=== PATIENT | female | born 1980 | race Caucasian/White ===

== ENCOUNTER 2020-09-29 12:39 | Emergency (ER) | payer OTHER, SELFPAY ==
--- NOTE | ~2020-09-29 | XR_ITS ---
EXAMINATION: XR chest 2V EXAM DATE: 09/29/2020 13:10 INDICATION: post COVID cough x 10 days. TECHNIQUE: Frontal and lateral projections of the chest obtained and reviewed. There is no prior amie dy for comparison. FINDINGS: The lungs are clear. There are no pleural effusions. The cardiomediastinal silhouette is within normal limits. There is no pneumothorax suspected. The bones and soft tissues are unremarkab le. IMPRESSION: No acute cardiopulmonary findings. Reviewed, dictated and finalized at location [facility]. E MOVER HELPER
--- NOTE | 2020-09-29 12:43 | ED.URI ---
HPI - URI/Sore Throat General Chief Complaint: Upper Respiratory Infection Stated Complaint: possible sinus infection Time Seen by Provider: 09/29/20 12:50 Source: patient and RN notes reviewed Mode of arrival: ambulatory Limitations: no limitations History of Present Illness HPI Narrative: 39-year-old female presents with concern for cough, chest congestion. Reports she had Covid 1 month ago and has been quarantining for the past 3 weeks. Reports she continues to have a cough and a feeling of chest congestion. Reports she is using Mucinex that is beginning to improve her symptoms. She denies any new fever, nasal congestion, rhinorrhea, sore throat, body aches, chills, sweats. MD elicited complaint: cough Related Data Home Medications Medication Instructions Recorded Confirmed spironolactone 100 mg PO DAILY 09/29/20 09/29/20 Allergies Allergy/AdvReac Type Severity Reaction Status Date / Time No Known Allergies Allergy Unverified 01/21/18 15:20 Review of Systems Review of Systems: Narrative: CONSTITUTIONAL: Denies malaise, chills, sweats, or fever. EYES: Denies visual changes, redness, or discharge. ENT: Denies rhinorrhea, congestion, sinus pain, otalgia and sore throat. CARDIOVASCULAR: Denies chest pain, palpitations, or edema. RESPIRATORY: Reports cough, chest congestion. Denies dyspnea. GASTROINTESTINAL: Denies abdominal pain, nausea, vomiting, diarrhea SKIN: Denies rash or itching. MUSCULOSKELETAL: Denies myalgia. NEUROLOGIC: Denies headache. All systems reviewed & are unremarkable except as noted in HPI and below PMFSH Social History Social History Gender identity (if verbalized by the patient): Female Comments At time of signature, agree with nursing past medical, surgical, social and family history. There is no relevant family history pertinent to the presenting complaint Exam Narrative: Exam Narrative: GENERAL: Well-appearing, well-nourished, and in no acute distress. HEAD: Normocephalic EYES: PERRLA, conjunctivae clear ENT: Nares clear, turbinates pink, no discharge. Mucous membranes moist. TM pearly edwards with sharp light reflex bilaterally; no tragal tenderness. Oropharynx not erythematous without lesions. Tonsils not enlarged and without exudate, no drooling, no hoarseness, no trismus, uvula midline. NECK: Supple. No lymphadenopathy CHEST: Clear to auscultation, breath sounds equal. No wheezing, rhonchi, rales, or stridor. No respiratory distress, speaks in full sentences. HEART: Regular rate and rhythm. No murmur heard. SKIN: Warm, dry, no rash. NEURO: Alert and oriented x3. PSYCH: Normal mood and affect Course Course Emergency Course: Patient is aware of diagnosis, understands and agrees to treatment plan. Anticipatory guidance given. Patient agrees to follow-up as directed and is aware of reasons to seek care at the emergency department. Portions of this record may have been created with voice recognition software Vital Signs Vital signs: Reviewed. Patient has been instructed to follow up with her primary care provider within the next week regarding her elevated blood pressure today. MDM - URI/Sore Throat Imaging Data My impression: Images reviewed, interpreted by radiologist, agree, see report. Radiologist's impression: EXAMINATION: XR chest 2V EXAM DATE: 09/29/2020 13:10 INDICATION: post COVID cough x 10 days. TECHNIQUE: Frontal and lateral projections of the chest obtained and reviewed. There is no prior study for comparison. FINDINGS: The lungs are clear. There are no pleural effusions. The cardiomediastinal silhouette is within normal limits. There is no pneumothorax suspected. The bones and soft tissues are unremarkable. IMPRESSION: No acute cardiopulmonary findings. Critical Care Time Critical Care Time Critical Care Time: No Discharge Plan Discharge Clinical Impression: Bronchitis Patient Disposition: Home, Self-Care Condition: Stable Na
[2020-09-29 12:49] VITALS: BP 141/76; PULSE 76; RESP 16; TEMP 36.9; O2SAT 98
== END 2020-09-29 13:32 | disposition home or self-care (01) ==
PROVIDERS: Emergency Provider Nurse Practitioner
DX: J40 Bronchitis, not specified as acute or chronic (principal); Z86.19 Personal history of other infectious and parasitic diseases
CPT/HCPCS: 71046; 99213; G0463

== ENCOUNTER → 2022-04-05 14:15 | Outpatient (CLI) | payer BC, SELFPAY ==
--- NOTE | ~2022-04-05 | MM_ITS ---
EXAMINATION: MM screening irene BI w jocelyn HISTORY: Screening TECHNIQUE: Craniocaudal and mediolateral oblique 3-D tomosynthesis images were obtained and synthetic 2-D images were generated. CAD analysis was submitted and interpreted. COMPARISON: No prior mammogram is available for comparison at this institution. BREAST PARENCHYMAL COMPOSITION: There are scattered areas of fibroglandular density. FINDINGS: There are focal asymmetries in the lower inner quadrant of the left breast, middle third. N o mammographic evidence for malignancy in the right breast. IMPRESSION: 1. Left breast asymmetries, lower inner quadrant. 2. Additional spot compression and mediolateral views with possible follow-up breast ultrasound recom mended. BI-RADS Category 0: Incomplete: Needs additional imaging evaluation. Reviewed, dictated and finalized at location A. IMPRESSION: 1. Left breast asymmetries, lower inner quadrant. 2. Additional spot compression and mediolateral views with possible follow-up b reast ultrasound recommended. BI-RADS Category 0: Incomplete: Needs additional imaging evaluation.
== END ==
PROVIDERS: PCP Nurse Practitioner Obstetrics & Gynecology; Visit Provider Nurse Practitioner Obstetrics & Gynecology
DX: Z12.31 Encounter for screening mammogram for malignant neoplasm of breast (principal); R92.8 Other abnormal and inconclusive findings on diagnostic imaging of breast
CPT/HCPCS: 77063; 77067

== ENCOUNTER 2024-01-10 14:20 | Observation (INO) | payer BC, SELFPAY ==
[2024-01-10] VITALS (11 sets, daily range): BP systolic 105–156; BP diastolic 73–97; PULSE 72–100; RESP 12–17; TEMP 36.6–36.8; O2SAT 97–100; BMI 43.6
--- NOTE | ~2024-01-10 | US_ITS ---
EXAMINATION: US carotid duplex BI DATE: 01/11/2024 11:54 INDICATION: Syncope TECHNIQUE: Grayscale, color Doppler, and pulsed Doppler images of the cervical carotid arteries were obtained. The degree of vessel stenosis is placed in one of the following categories: normal, <50%, 5 0-69%, >=70% but less than near-occlusion, near-occlusion, or total occlusion. Note that percent sten osis relative to normal distal artery lumen diameter is indirectly measured from velocity measurement s as described by Monty, et al. Radiology 2003; 229:340-346. COMPARISON: None. FINDINGS: RIGHT: The right common carotid artery (CCA) peak systolic velocity (PSV) is 115.5 cm/s. The right internal carotid artery (ICA) PSV is 96.1 cm/s. The right ICA end-diastolic velocity (EDV) is 43.9 cm/s. The r ight ICA/CCA PSV ratio is 0.8. Grayscale and color Doppler images yield an estimate of 0% diameter re duction from plaque in the ICA. The external carotid artery (ECA) PSV is 89.7 cm/s. There is antegrad e flow in the right vertebral artery. LEFT: The left CCA PSV is 105.3 cm/s. The left ICA PSV is 82.3 cm/s. The left ICA EDV is 31.9 cm/s. The lef t ICA/CCA PSV ratio is . Grayscale and color Doppler images yield an estimate of 0% diameter reductio n from plaque in the ICA. The ECA PSV is 82.3 cm/s. There is antegrade flow in the left vertebral art collette. IMPRESSION: 1. No significant stenosis in the right internal carotid artery. 2. No significant stenosis in the left internal carotid artery. Reviewed, dictated and finalized at [facility]. Reviewed, dictated and finalized at location A.
--- NOTE | ~2024-01-10 | CT_ITS ---
EXAMINATION: CT brain wo con DATE: 01/10/2024 17:19 INDICATION: syncope/seizure . TECHNIQUE: Computed tomography (CT) of the head was performed without intravenous contrast. The mA wa s adjusted according to patient size. Iterative reconstruction technique was employed. The dose-lengt h product was 605.33 mGy-cm. COMPARISON: None. FINDINGS: No acute intracranial hemorrhage or extra-axial fluid collection. No hydrocephalus, mass, or herniation. No acute ischemic infarct. Unremarkable dural venous sinus attenuation. No acute osseous abnormality. The aerated spaces are clear. IMPRESSION: No acute intracranial process. Reviewed, dictated and finalized at location K.
--- NOTE | ~2024-01-10 | MR_ITS ---
EXAMINATION: MR brain/brain stem wo con DATE: 01/11/2024 11:32 INDICATION: syncope and collapse TECHNIQUE: Magnetic resonance imaging (MRI) of the brain and brainstem was performed without intraven ous contrast. Sequences included sagittal and axial T1-weighted SE, coronal FSPGR 3-D, axial diffusio n-weighted, axial T2*-weighted GRE, axial and coronal T2-weighted FLAIR, and axial T2-weighted Propel ler. Apparent diffusion coefficient (ADC) maps were created. COMPARISON: CT brain 01/10/24. FINDINGS: No abnormal restricted diffusion to suggest acute ischemic infarct. No MRI evidence of hemorrhage or extra-axial collection. No suspicious foci of susceptibility to suggest prior intraparenchymal hemorr linh. Normal white matter signal. No evidence of advanced or lobar predominant parenchymal volume los s. The basilar cisterns are patent. Flow voids are preserved. Ethmoid and maxillary mucosal thickenin g. Globes and orbital contents are within normal limits. IMPRESSION: Normal MR brain findings Reviewed, dictated and finalized at location K. IMPRESSION: Normal MR brain findings
--- NOTE | ~2024-01-10 | CT_ITS ---
EXAMINATION: CTA chest PE protocol DATE: 01/11/2024 09:21 INDICATION: Syncope TECHNIQUE: Computed tomography angiography (CTA) of the chest was performed with 100 mL Omnipaque-350 intravenous contrast timed to evaluate the pulmonary arteries. Coronal maximum intensity projection 3D-reconstructions were created by the technologist. Automated exposure control and iterative reconst ruction technique were employed. Exam dose: 964.17 mGy-cm total exam DLP. COMPARISON: No prior examinations are available from PACS. FINDINGS: There is diagnostic contrast enhancement of the pulmonary arteries and no evidence of pulmo nary embolism. No thoracic aortic aneurysm or dissection. No hilar or mediastinal mass lesion or lymphadenopathy. Normal heart size. No pericardial or pleural effusion. No pulmonary infiltrate or consolidation or pulmonary mass lesion is detected. Normal morphology of the adrenal glands. Small sliding hiatal hernia. IMPRESSION: No significant abnormality Reviewed, dictated and finalized at [facility]. Reviewed, dictated and finalized at location A. IMPRESSION: No significant abnormality
--- NOTE | 2024-01-10 14:27 | ECG_ITS ---
Measurements Intervals [place] Rate: 102 P: 42 LA: 127 QRS: 7 QRSD: 102 T: 61 QT: 337 QTc: 440 Interpretive Statements SINUS TACHYCARDIA POOR R-WAVE PROGRESSION NO PREVIOUS ECG AVAILABLE FOR COMPARISON Electronically Signed On 01-11-2024 13:19:37 CDT by Zaynab Giraldo M.D.
[2024-01-10 14:44] LABS: Basophils Absolute Auto 0.1 K/mm3 (0.0-0.1); Basophils Percent Auto 0.6 % (0.2-1.2); Eosinophils Absolute Auto 0.5 K/mm3 (0-0.3); Eosinophils Percent Auto 5.3 % (0-4.4); Hemoglobin 14.7 g/dL (12.0-15.0); Immature Granulocyte Absolute 0.02 K/mm3 (0.00-0.031); Immature Granulocyte Percent A 0.2 % (0-0.5); Lymphocytes Absolute Auto 2.83 K/mm3 (0.9-3.2); Lymphocytes Percent Auto 28.8 % (18.3-44.2); Mean Corpuscular HGB Conc 33.4 g/dl (32-36); Mean Corpuscular Hemoglobin 31.4 pg (26-34); Mean Platelet Volume 9.6 fl (7.4-10.4); Monocytes Absolute Auto 0.6 K/mm3 (0.1-0.6); Monocytes Percent Auto 5.8 % (2.6-8.5); Neutrophils Absolute Auto 5.8 K/mm3 (1.3-6.7); Neutrophils Percent Auto 59.3 % (45.5-73.1); Platelet Count Result 369 k/mm3 (150-375); Red Blood Count 4.68 M/mm3 (4.2-5.4); Red Cell Distribution Width 12.2 % (11.5-14.5); White Blood Count 9.8 K/mm3 (4.5-10.0)
[2024-01-10 14:56] LABS: Alanine Aminotransferase 35 U/L (6-35); Albumin Level 4.7 g/dL (3.5-5.1); Alkaline Phosphatase 48 U/L (38-126); Anion Gap 11 mmol/L (4-12); Aspartate Amino Transferase 28 U/L (14-36); Bilirubin,Total 0.7 mg/dL (0.2-1.3); Blood Urea Nitrogen 14 mg/dL (7-17); Calcium 10.5 mg/dL (8.4-10.2); Carbon Dioxide 21 mmol/L (22-30); Chloride 104 mmol/L (98-107); Estimated CRCL calculation 106 ml/min; Estimated Glomerular Filt Rate > 60; Glucose 135 mg/dL (65-110); Potassium 4.3 mmol/L (3.4-5.0); Sodium 136 mmol/L (137-145)
[2024-01-10] MEDS: SODIUM CHLORIDE 0.9% IV 2,000 ML 999 ML IV CONT (16:50)
--- NOTE | 2024-01-10 17:39 | ED.GENADULT ---
HPI - General Adult General Chief complaint: Syncope Stated complaint: syncopal Time Seen by Provider: 01/10/24 16:28 History of Present Illness HPI narrative: this is a 43-year-old female presenting ED after loss of consciousness. the patient does not remember the events leading up to her loss of consciousness. She notes that she was taking a shower and then woke up with EMS. Her said he heard a thud from the other room. We went in to check on her she was laying on the floor. He did not observe any shaking movements at that time. When she did wake up she was confused but slowly returned to normal. Patient has no complaints at this time. She did bite the left side of her tongue. Unknown if there is urinary incontinence as she was in the shower. patient has no physical complaints at this time. patient and her believes she may have had a seizure 7 years ago when she had an episode of uncontrolled arm movements that resulted in her having a postictal period. At that time the not seek any care Related Data Home Medications Medication Instructions Recorded Confirmed spironolactone 100 mg tablet 100 mg PO DAILY 09/29/20 09/29/20 Allergies Allergy/AdvReac Type Severity Reaction Status Date / Time No Known Allergies Allergy Verified 01/10/24 14:29 [facility] Social History Social History Gender identity (if verbalized by the patient): Female Exam Narrative: APPEARANCE: No apparent distress. Head: Bruising to left side of the tongue EYES: EOMI, NOSE: Atraumatic NECK: Trachea midline RESPIRATORY: No increased rate of breathing, clear to auscultation CARDIOVASCULAR: RRR, ABDOMINAL: Non-distended MUSCULOSKELETAl: No obvious deformities NEURO: Alert. Cranial nerves 2-12 grossly intact. Sensation light touch, motor function cerebellar function intact for 4 extremities. Gait exam was normal. SKIN:: Warm, dry. Normal color PSYCHIATRIC: Normal affect Course Vital Signs Vital signs: Vital Signs Temperature 98.3 F 01/10/24 14:20 Pulse Rate 100 01/10/24 14:20 Respiratory Rate 17 01/10/24 14:20 Blood Pressure 156/97 H 01/10/24 14:20 Pulse Oximetry 97 01/10/24 14:20 Oxygen Delivery Room Air 01/10/24 14:20 Temperature 98.3 F 01/10/24 14:20 Pulse Rate 72 01/10/24 19:20 Respiratory Rate 15 01/10/24 19:20 Blood Pressure 119/73 01/10/24 19:20 Pulse Oximetry 98 01/10/24 19:20 Oxygen Delivery Room Air 01/10/24 14:39 Medical Decision Making MDM Narrative Medical decision making narrative: -Course: 43-year-old female presenting with loss of consciousness. Patient has tongue biting and an apparent postictal period. workup here negative. Patient will be admitted for new onset seizure workup. case discussed with Dr. Deal and Dr. Dennis -DDX includes but is not limited to: seizure, syncope, ICH -Independent interpretation of studies: Labs reviewed within normal limits CT head unremarkable Independent EKG interpretation: Rhythm [sinus], Rate [102], [place] -[normal], ND -[normal], QRS [narrow], QTC [normal], T waves -[negative for concerning inversions], ST Segments - [Negative for concerning elevations] Final interpretations: sinus tachycardia -Discussion of Management/Consultants: Say - NeuroSonny -hospitalist -Interventions: 2 L normal saline -Shared decision making / Disposition: Admitted Vital Signs Vital Signs: Vital Signs Temperature 98.3 F 01/10/24 14:20 Pulse Rate 100 01/10/24 14:20 Respiratory Rate 17 01/10/24 14:20 Blood Pressure 156/97 H 01/10/24 14:20 Pulse Oximetry 97 01/10/24 14:20 Oxygen Delivery Room Air 01/10/24 14:20 Temperature 98.3 F 01/10/24 14:20 Pulse Rate 72 01/10/24 19:20 Respiratory Rate 15 01/10/24 19:20 Blood Pressure 119/73 01/10/24 19:20 Pulse Oximetry 98 01/10/24 19:20 Oxygen Delivery Room Air 01/10/24 14:39 Lab Data 01/10/24 14:34
[2024-01-10 17:52] LABS: NT Pro B Type Natriuretic Pept 72 pg/mL (19.9-100); Troponin I < 0.012 ng/mL (0.000-0.034)
[2024-01-10 18:45] LABS: Appearance Urine Clear (Clear); Bilirubin Urine Negative (Negative); Blood Urine Negative (Negative); Color Urine Yellow (Yellow); Glucose Urine UA Negative (Negative); Ketones Urine Negative (Negative); Leukocyte Esterase Ur Negative LEU/UL (Negative); Nitrate Urine Negative (Negative); Protein Urine Negative (Negative); Urobilinogen Urine 0.2 mg/dL (<2.0)
[2024-01-10 18:59] LABS: Add Urine Microscopic? NO
[2024-01-10 19:04] LABS: Amphetamine Screen Urine Negative (Negative); Barbiturate Screen Urine Negative (Negative); Benzodiazepines Screen Urine Negative (Negative); Cannabinoid Screen Urine Negative (Negative); Cocaine Screen Urine Negative (Negative); Methadone Screen Urine Negative (Negative); Opiate Screen Urine Negative (Negative); Phencyclidine Screen Urine Negative (Negative)
--- NOTE | 2024-01-10 20:05 | PM.IMHP ---
H&P: HPI History of Present Illness Date/Time: 01/10/24 20:05 Chief Complaint: AMS Narrative: this is a 43-year-old female with past medical history significant for morbid obesity. Patient presented to the emergency room via EMS after she was found unconscious by her , according to he heard a loud noise and went upstairs to check up on her when he found her unconscious laying on the shower floor. Patient has no recollection of event she workup while on the ambulance ride. Prior to this patient has been in her usual state of health denies any headaches, now has a headache in the occipital area, no vision changes no fevers no rigors no chills no palpitations no nausea no vomiting no diarrhea. Preliminary workup has been essentially nonrevealing. EXAMINATION: CT brain wo con DATE: 01/10/2024 17:19 INDICATION: syncope/seizure . TECHNIQUE: Computed tomography (CT) of the head was performed without intravenous contrast. The mA was adjusted according to patient size. Iterative reconstruction technique was employed. The dose-length product was 605.33 mGy-cm. COMPARISON: None. FINDINGS: No acute intracranial hemorrhage or extra-axial fluid collection. No hydrocephalus, mass, or herniation. No acute ischemic infarct. Unremarkable dural venous sinus attenuation. No acute osseous abnormality. The? aerated spaces are clear. IMPRESSION:? No acute intracranial process. Review of Systems Review of Systems: PATIENT HAS NO RECOLLECTION OF EVENTS PMFSH Social History Social History Smoking status: Current every day smoker Tobacco type: cigarettes Alcohol intake: current Drinks per week: 1 Substance use: never Do You Feel Safe in your Home?: Yes Lack of Transportation: No Lack of Food: Never True Current Housing: I Have Housing Concerned About Future Housing: No Difficulty Paying Gas/Electric Bills: No Difficulty Paying for Meds: No Currently Unemployed: No Education: Master's Degree or Higher Difficulty w/ Childcare or Family Care: No Gender identity (if verbalized by the patient): Female Spiritual care concerns: No Meds Home Medications and Allergies Home Medications Medication Instructions Recorded Confirmed Type spironolactone 100 mg tablet 100 mg PO DAILY 09/29/20 01/10/24 History Allergies Allergy/AdvReac Type Severity Reaction Status Date / Time No Known Allergies Allergy Verified 01/10/24 14:29 Vital Signs Vital Signs - 24 hr 01/10/24 14:20 01/10/24 14:38 01/10/24 14:39 Temperature 98.3 F Pulse Rate 100 95 Respiratory Rate 17 Blood Pressure 156/97 H Pulse Oximetry 97 100 Oxygen Delivery Room Air Room Air 01/10/24 15:37 01/10/24 16:49 01/10/24 18:39 Temperature Pulse Rate 73 82 80 Respiratory Rate 12 13 14 Blood Pressure 147/87 H 144/86 H 122/75 Pulse Oximetry 98 99 99 Oxygen Delivery 01/10/24 19:20 Temperature Pulse Rate 72 Respiratory Rate 15 Blood Pressure 119/73 Pulse Oximetry 98 Oxygen Delivery Exam Const: General: comfortable, no acute distress, well developed, alert, awake and obese Nutritional Appearance: obese Orientation/consciousness: patient oriented x3 Other: WELL APPEARING HENMT: Head: normal to inspection, normocephalic and atraumatic Ears: hearing grossly normal bilaterally Face/Nose/Sinus: normal facial exam Face and sinus: normal facial exam Eyes: General: appearance normal, both eyes and all related structures Pupils: Equal, round and reactive pupils present EOM: EOMs intact bilaterally Neck: Neck: full ROM, no lymphadenopathy and no JVD Thyroid: thyroid normal Lymphatic: no lymphadenopathy noted Resp: Effort & Inspection: normal respiratory effort and able to speak in complete sentences Auscultation: clear to auscultation bilaterally Cardio: Jugular venous distension: no JVD Rate: regular rate Rhythm: regular rhythm Heart sounds
--- NOTE | 2024-01-10 21:32 | ADMGEN ---
This patient, Khloe Patricio, was admitted to Medical Room 342-01. Patient/family oriented to hospital policies and general routines including ID bracelet, bed and alarms, visiting hours, pain management, procedures, bathroom and other care routines, personal items, smoking policy, room service/diet, and visiting hours. Information on how to activate the Rapid Response Team has been discussed. Patient/Family are encouraged to report perceived risks to care and to ask questions if they do not understand what they are told or what they should do.
[2024-01-11] VITALS (8 sets, daily range): BP systolic 117–141; BP diastolic 67–89; PULSE 70–82; RESP 14–16; TEMP 35.9–36.8; O2SAT 99–100
--- NOTE | 2024-01-11 | ECHO_ITS ---
Patient Info Name: Khloe Patricio Age: 43 years : 1980 Gender: Female Ht: 67 in Wt: 265 lbs BSA: 2.44 m2 HR: 75 bpm BP: 117 / 67 mmHg Heart Rhythm: Sinus Rhythm Technical Quality: Good Exam Date: 01/11/2024 7:02 AM Exam Location: Echo Lab Patient Status: Inpatient Admit Date: 01/10/2024 Staff Ordering Physician: Melodie Dennis MD Sanitation Technician: Albertina Joel RDCS Attending Provider: Melodie Dennis MD Referring Physician: Sonny SIERRA; Exam Type: CA echo doppler color flow Study Info Indications - syncope Complete two-dimensional, color flow and Doppler transthoracic echocardiogram is performed. Summary 1. Complete two-dimensional, color flow and Doppler transthoracic echocardiogram is performed. 2. Left ventricular chamber dimension is mildly enlarged. 3. Left ventricular systolic function is normal, estimated at 60-65%. 4. The left ventricular diastolic function is grade III diastolic dysfunction. 5. Right ventricular systolic function is normal. 6. No significant valvular disease. Left Ventricle Left ventricular chamber dimension is mildly enlarged. Left ventricular systolic function is normal, estimated at 60-65%. There is no increased left ventricular wall thickness. The left ventricular diastolic function is grade III diastolic dysfunction. Right Ventricle Right ventricular chamber dimension is normal. Right ventricular systolic function is normal. Left Atria Left atrial chamber dimension is normal. Right Atria Right atrial chamber dimension is normal. Atrial Septum Intact interatrial septum visualized by color flow imaging. Aortic Valve The aortic valve is trileaflet. There is no aortic valve stenosis. There is no aortic valve regurgitation. Pulmonic Valve The pulmonic valve is not well visualized. Mitral Valve There is trace mitral valve regurgitation. Tricuspid Valve There is trace tricuspid valve regurgitation. Pericardium/Pleural There is no pericardial effusion. Inferior Vena Cava Inferior vena cava is not well visualized. Aorta The aortic root size at the sinus of Valsalva is normal. Left Ventricular Outflow Tract Name Value Normal LVOT 2D LVOT Diameter 2.1 cm LVOT Doppler LVOT Peak Gradient 4 mmHg LVOT Mean Gradient 3 mmHg LVOT VTI 32 cm LVOT VTI/AV VTI Ratio 0.8 LVOT Stroke Volume 113 ml LVOT CO 7.6 l/min LVOT CI 3.1 l/min/m2 Pulmonic Valve Name Value Normal RVOT Doppler RVOT Peak Gradient 1 mmHg PV Doppler PV Peak Gradient 4 mmHg Mitral Valve Name V
[2024-01-11] MEDS: SPIRONOLACTONE 50 MG TABLET 100 MG PO (09:28)
[2024-01-11 10:32] LABS: Hematocrit 41.7 % (37.0-47.0); Hemoglobin 13.9 g/dL (12.0-15.0); Mean Corpuscular HGB Conc 33.3 g/dl (32-36); Mean Corpuscular Hemoglobin 31.7 pg (26-34); Mean Platelet Volume 9.7 fl (7.4-10.4); Platelet Count Result 337 k/mm3 (150-375); Red Blood Count 4.39 M/mm3 (4.2-5.4); Red Cell Distribution Width 12.5 % (11.5-14.5); White Blood Count 12.4 K/mm3 (4.5-10.0)
[2024-01-11 10:42] LABS: Alanine Aminotransferase 37 U/L (6-35); Albumin Level 4.6 g/dL (3.5-5.1); Alkaline Phosphatase 42 U/L (38-126); Anion Gap 10 mmol/L (4-12); Aspartate Amino Transferase 29 U/L (14-36); Bilirubin,Total 0.7 mg/dL (0.2-1.3); Blood Urea Nitrogen 14 mg/dL (7-17); Calcium 9.6 mg/dL (8.4-10.2); Carbon Dioxide 23 mmol/L (22-30); Chloride 106 mmol/L (98-107); Cholesterol 191 mg/dL (0-200); Estimated CRCL calculation 98 ml/min; Estimated Glomerular Filt Rate > 60; Glucose 151 mg/dL (65-110); HDL Direct 59 mg/dL; Potassium 3.9 mmol/L (3.4-5.0); Sodium 139 mmol/L (137-145); Triglycerides 112 mg/dL (<150)
[2024-01-11 10:53] LABS: LDL Cholesterol Direct 107 mg/dL
[2024-01-11 11:02] LABS: Hemoglobin A1C 5.3 % (<5.7)
--- NOTE | 2024-01-11 14:44 | WPDNEURCNPN ---
Assessment and Plan Assessment and plan (1) Morbid obesity with BMI of 40.0-44.9, adult: Code(s): E66.01 - Morbid (severe) obesity due to excess calories; Z68.41 - Body mass index [BMI] 40.0-44.9, adult Status: Acute (2) Syncope and collapse: Code(s): R55 - Syncope and collapse Status: Acute Plan 1. Couple episode rule out the possibility of seizures and intracranial abnormalities with the EEG as well in addition to MRI of the brain. Consult date: 01/11/24 HPI: Khloe Patricio is a 43 year old female Admitted to the hospital through the emergency room subsequent to syncopal episode for which she had no recall in the emergency room reportedly she was taking a shower and then woke up with EMS her heard a thud from the other room and she was found to be laying on the floor though he did not observe any shaking movements of the upper or lower extremities when she woke up finally she was confused and then slowly returned to the normal did bite her tongue on the left side and had no physical complaints in the emergency room, she has been taking spironolactone 100mg daily, she is not allergic to any medications, initial physical exam in the emergency room was unremarkable with vital signs revealing blood pressure 156/97 which came down to normal CBC was normal basic metabolic panel with sodium 136 routine lab studies normal and the drug screen negative, initial CT scan of the head negative for the bleed, chest CTA negative, carotid Doppler study has been done which is also normal and MRI of the brain is pending. The EKG was normal without atrial fibrillation PMFSH Social History Social History Smoking status: Current every day smoker Tobacco type: cigarettes Alcohol intake: current Drinks per week: 1 Substance use: never Do You Feel Safe in your Home?: Yes Lack of Transportation: No Lack of Food: Never True Current Housing: I Have Housing Concerned About Future Housing: No Difficulty Paying Gas/Electric Bills: No Difficulty Paying for Meds: No Currently Unemployed: No Education: Master's Degree or Higher Difficulty w/ Childcare or Family Care: No Gender identity (if verbalized by the patient): Female Spiritual care concerns: No Meds Home Medications and Allergies Home Medications Medication Instructions Recorded Confirmed Type spironolactone 100 mg tablet 100 mg PO DAILY 09/29/20 01/10/24 History Allergies Allergy/AdvReac Type Severity Reaction Status Date / Time No Known Allergies Allergy Verified 01/10/24 14:29 Vital Signs Vital Signs - 24 hr 01/10/24 15:37 01/10/24 16:49 01/10/24 18:39 Temperature Pulse Rate 73 82 80 Respiratory Rate 12 13 14 Blood Pressure 147/87 H 144/86 H 122/75 Pulse Oximetry 98 99 99 Oxygen Delivery 01/10/24 19:20 01/10/24 20:28 01/10/24 21:22 Temperature 36.6 C Pulse Rate 72 83 80 Respiratory Rate 15 17 16 Blood Pressure 119/73 105/79 137/80 Pulse Oximetry 98 98 99 Oxygen Delivery 01/10/24 22:18 01/11/24 00:00 01/10/24 23:22 Temperature Pulse Rate 80 80 Respiratory Rate 16 Blood Pressure Pulse Oximetry 99 99 Oxygen Delivery Room Air Room Air 01/11/24 04:00 01/11/24 06:00 01/11/24 07:45 Temperature 35.9 C L 36.5 C Pulse Rate 76 75 82 Respiratory Rate 14 16 Blood Pressure 117/67 131/68 Pulse Oximetry 99 100 Oxygen Delivery 01/11/24 07:48 01/11/24 07:49 01/11/24 08:00 Temperature Pulse Rate 70 72 71 Respiratory Rate Blood Pressure 141/89 H 139/86 Pulse Oximetry 100 100 Oxygen Delivery 01/11/24 09:30 01/11/24 14:00 Temperature 36.8 C Pulse Rate 77 Respiratory Rate 16 Blood Pressure 122/71 Pulse Oximetry 100 Oxygen Delivery Room Air Exam Narrative: revealed her to be awake alert cooperative in no obvious acute distress, head normocephalic with no cranial bruit, ear nose throat examination normal, neck supple with no meninge
--- NOTE | 2024-01-11 16:28 | PM.DS ---
DS: Admitting Diagnosis Discharge Date 01/11/2024 Admitting Diagnosis Syncope/seizure like activity DS: Discharge Diagnosis Discharge Diagnosis (1) Syncope and collapse: Code(s): R55 - Syncope and collapse Status: Acute (2) Loss of consciousness: Code(s): R40.20 - Unspecified coma Status: Acute Plan Assessment and plan (1) Syncope and collapse Has reported seizure-like activity/appeared postictal at home Neurology consulted Head CT no acute issues MRI with normal brain CTA chest no acute issues Carotid Dopplers with less than 10% stenosis EEG: He can be done the toe Saturday will provide order TSH normal limits ECHOSummary ? 1. Complete two-dimensional, color flow and Doppler transthoracic echocardiogram is performed. ? 2. Left ventricular chamber dimension is mildly enlarged. ? 3. Left ventricular systolic function is normal, estimated at 60-65%. ? 4. The left ventricular diastolic function is grade III diastolic dysfunction. ? 5. Right ventricular systolic function is normal. ? 6. No significant valvular disease. ?MRI of the brain in the? morning (2) Morbid obesity with BMI of 40.0-44.9, adult: ?Obesity encourage increased on physical activity and lifestyle modifications Stress monitoring and eating disorder evaluation. encourage outpatient weight loss clinic BMI . Diet exercise counseling done. consult to dietitian Disposition: Patient was discharged home with plan for EEG on Saturday and follow up with Neurology outpatient. DS: Summary Hospital Course Reason for hospitalization: Syncope/Seizure like activity Hospital Course: Patient is a 43-year-old female who presented to the emergency department after a syncopal episode at home. Patient states she does not remember anything except when she woke up in the ambulance. Per patient was in the shower when he heard a thud when he assessed his she was unconscious still breathing appear to have some seizure-like activity. Patient states she recalls 1 other episode 10 years ago of same symptoms but did not seek any medical care. Patient's labs were unremarkable except for a mildly elevated leukocytosis likely reactive. Patient was admitted to the medical unit for further evaluation and consult to Neurology. CT head showed no acute issues, MRI showed normal brain, CTA negative for PE, echocardiogram does show a mildly enlarged left ventricle EF 60-65%. Patient with no deficits and no further events while hospitalized. Neurology was wanting the EKG however unable to be performed until Saturday it was agreed upon the patient be discharged home with order to return on Saturday for EEG and follow up with Neurology in their office as outpatient for further testing. Did education with the patient about no driving until cleared by Neurology. Patient discharged home with no acute issues or deficits. Status at Discharge Functional status at discharge: independent ambulation Time Spent with Patient Time attestation: Total time spent providing and/or coordinating discharge services: Time spent: Less than 30 minutes Exam Narrative: Physical Exam: GENERAL: Alert and oriented x 3. No acute distress. Obese. EYES: EOMI. No scleral icterus. PERRLA. HEENT: Moist mucous membranes. LUNGS: Clear to auscultation bilaterally. No accessory muscle use. CARDIOVASCULAR: Regular rate and rhythm. No murmur. No JVD. S1-S2 ABDOMEN: Soft, mild tenderness and non-distended. No palpable masses. EXTREMITIES: No edema. Non-tender SKIN: No rashes or lesions. Skin warm, dry. NEUROLOGIC: No focal neurological deficits. CN II-XII grossly intact PSYCHIATRIC: Appropriate mood and affect. Good judgement and insight. No visual or auditory hallucinations. No suicidal or homicidal ideation. DS: Data Data Completed and Pending Labs on day of discharge: Labs from last 24 hours 01/11/24 01/10/24
== END 2024-01-11 16:47 | disposition home or self-care (01) ==
LOC: ANHED 17:46 → ANH3MED 01-11 13:10
PROVIDERS: Emergency Medicine; Nurse Practitioner Family; Admitting Provider Internal Medicine; Emergency Provider Emergency Medicine; PCP Nurse Practitioner Obstetrics & Gynecology; Visit Provider Internal Medicine
DX: R55 Syncope and collapse (principal); E66.01 Morbid (severe) obesity due to excess calories; Z68.41 Body mass index [BMI] 40.0-44.9, adult; F17.210 Nicotine dependence, cigarettes, uncomplicated; Z79.899 Other long term (current) drug therapy
CPT/HCPCS: 36415; 70450; 70551; 71275; 80053; 80061; 80307; 81003; 81025; 83036; 83880; 84443; 84484; 85025; 85027; 93005; 93306; 93880; 96360; 96361; 99285; A9270; G0378; J7030; Q9967

== ENCOUNTER 2024-01-16 10:39 | Outpatient (CLI) | payer BC, SELFPAY ==
--- NOTE | 2024-01-21 14:51 | WPDNEUROLOGY ---
Neurology EEG Report General Information Date of Study: 01/16/24 TEST eeg DIAGNOSIS New onset seizures CONDITION OF RECORDING awake drowsy and sleep EEG NUMBER [id number] CLINICAL HISTORY patient reports about a week ago she lost consciousness. Fell and bit her tongue. No history of seizures in the past. EEG DESCRIPTION Basic resting occipital frequency consists of low-voltage 8 to 11 hertz per 2nd alpha admixed with low-voltage 15 to 18 hertz per 2nd beta with good carly posterior gradient. Hyperventilation produced normal and symmetrical buildup. Bilateral symmetrical sleep activity is noted with mixture of alpha theta and beta activity evolving into normal bilateral symmetrical sleep spindles. Non paroxysmal. Nonfocal. Nonlateralizing. IMPRESSION Normal record. Clinical correlation recommended. She can be normal in a patient with the history of seizures.
== END 2024-01-16 10:40 | disposition home or self-care (01) ==
PROVIDERS: PCP Nurse Practitioner Obstetrics & Gynecology; Visit Provider Nurse Practitioner Family
DX: R40.20 Unspecified coma (principal)
CPT/HCPCS: 95816

== ENCOUNTER 2024-02-12 08:46 | Outpatient (CLI) | payer BC, SELFPAY ==
--- NOTE | ~2024-02-12 | CT_ITS ---
EXAMINATION: CTA brain carotid DATE: 02/12/2024 09:42 INDICATION: Syncope. TECHNIQUE: Computed tomographic angiography (CTA) of the head was performed without and with 100 mL O mnipaque-350 intravenous contrast. CTA of the neck was performed with intravenous contrast. Automated exposure control and iterative reconstruction technique were employed. The dose-length product was 1 805.47 mGy-cm. Maximum intensity projection and volume rendered 3D-reconstructions were created by garett zarate technologist on a separate workstation. COMPARISON: Head CT 01/10/2024 FINDINGS: HEAD CTA: There is no intracranial hemorrhage, acute infarction, or abnormal intracranial mass lesion . The ventricles are normal in size. The orbits are normal. There is mild mucosal thickening in the p aranasal sinuses. The mastoid air cells are normal. Left vertebral artery is dominant. There is no si gnificant stenosis of basilar artery or the posterior cerebral arteries. Right posterior communicatin g artery is normal. A left posterior communicating artery is not identified. There is no significant stenosis of the intracranial internal carotid arteries or anterior or middle cerebral arteries. Anter ior communicating artery is normal. There is no aneurysm. NECK CTA: There are no pathologically enlarged lymph nodes. There is no significant stenosis of the v ertebral arteries. There is no visible plaque in the proximal internal carotid arteries. There is 0% stenosis of the proximal right internal carotid artery relative to normal distal artery lumen diamete r (NASCET criteria). There is 0% stenosis of the proximal left internal carotid artery relative to no rmal distal artery lumen diameter. There is mild cervical spondylosis. IMPRESSION: 1. Normal brain. No aneurysm or significant intracranial arterial stenosis. 2. Normal neck arteries. Reviewed, dictated and finalized at location A.
== END 2024-02-12 08:47 | disposition home or self-care (01) ==
PROVIDERS: PCP Nurse Practitioner Obstetrics & Gynecology; Visit Provider Student in an Organized Health Care Education/Training Program
DX: R55 Syncope and collapse (principal)
CPT/HCPCS: 70496; 70498; Q9967